=== PATIENT | female | born 1955 | race Caucasian/White ===

== ENCOUNTER 2017-10-25 07:32 | Day surgery (SDC) | payer OTHER ==
[~2017-10-25] VITALS: Ht 160 cm; Wt 72.0 kg
[~2017-10-25 07:32] MED LIST: CITRACAL + D E1 EACH PO; CLOMIPRAMINE HC25 MG PO; ESTRACE42.5 GM VG; FOSAMAX70 MG PO; LEVOTHYROXINE100 MCG PO; LOPRESSOR25 MG PO; TOPAMAX50 MG PO; VITAMIN D32000 UNI1 PO; WELLBUTRIN75 MG PO; XANAX0.25 MG PO; ZOLOFT50 MG PO; ZOMIG5 MG PO
[2017-10-25 08:09] VITALS: BP 120/78
[2017-10-25] MEDS ORDERED: ALKA-SELTZER P1 EAC8 PO (08:23)
[2017-10-25 11:05] VITALS: BP 106/61
[2017-10-25 12:08] VITALS: BP 106/61
== END 2017-10-25 12:15 | disposition home or self-care (01) ==
LOC: SDC 07:32
PROC: 0U5MXZZ Destruction of Vulva, External Approach (ICD-10-PCS; principal; 2017-10-25)
DX: N90.1 Moderate vulvar dysplasia (principal); I10 Essential (primary) hypertension; E03.9 Hypothyroidism, unspecified; Z88.2 Allergy status to sulfonamides
CPT/HCPCS: 88305; 88342 TC; J0131; J0690; J1100; J1885; J2250; J2405; J3010